=== PATIENT | male | born 1960 | race Caucasian/White ===

== ENCOUNTER 2016-12-02 00:01 | Outpatient (RCR) | payer MEDICARE, MEDICAID, SELFPAY ==
[~2016-12-02 00:01] MED LIST: ADV250 IH; ALBU17AE27 IH; ALBU8HFA IH; AMAN100C12 PO; AMOX250T PO; ARIP5TAB8 PO; ASPI-891 PO; ASPI81TA39 PO; ATOR10TA84 PO; DIPH25 PO; DIPH25CA85 PO; DIVA500T2 PO; DIVA500T35 PO; DIVA500T52 PO; DIVA500T69 PO; DOCU-119 PO; DOCU250C28 PO; DOCU250C91 PO; DSS100 PO; FLUT1DIS3 IH; IBUP-1506 PO; LEVO100 PO; LEVO125T4 PO; LEVO150 PO; LEVO175T4 PO; LEVO25TA4 PO; METO-296 PO; METO25XL PO; MULT-1065 PO; MULT1TAB70 PO; OLAN10TA3 PO; OLAN10TA6 PO; OLAN15TA2 PO; OLAN20TA2 PO; OLAN5TAB40 PO; OMEP20 PO; OMEP40CA PO; PANT40TA25 PO; PRAZ1 PO; PRAZ1CAP5 PO; PRAZ2 PO; PRAZ2CAP2 PO; PROP20 PO; QUET200T PO; QUET400T PO; RISP3 PO; SERT100T12 PO; SERT50TA12 PO; SIMV-260 PO; TAMS0.4C32 PO; TIOT185 IH; TOPROL ER PO; TRIH2TAB3 PO; TRIH5TAB2 PO
== END 2016-12-31 | disposition home or self-care (01) ==
LOC: IOPBV 00:01
PROVIDERS: ATTEND Psychiatry & Neurology Psychiatry
DX: F20.0 Paranoid schizophrenia (principal); H53.40 Unspecified visual field defects; R56.9 Unspecified convulsions; E78.00 Pure hypercholesterolemia, unspecified; I10 Essential (primary) hypertension; I51.89 Other ill-defined heart diseases; J44.9 Chronic obstructive pulmonary disease, unspecified; K21.9 Gastro-esophageal reflux disease without esophagitis; N40.0 Benign prostatic hyperplasia without lower urinary tract symptoms; E11.9 Type 2 diabetes mellitus without complications; E03.9 Hypothyroidism, unspecified; F32.9 Major depressive disorder, single episode, unspecified; F41.9 Anxiety disorder, unspecified; F42.9 Obsessive-compulsive disorder, unspecified; F17.210 Nicotine dependence, cigarettes, uncomplicated; Z90.89 Acquired absence of other organs; Z88.6 Allergy status to analgesic agent; Z91.013 Allergy to seafood
CPT/HCPCS: 90853

== ENCOUNTER → 2017-06-19 | Outpatient (CLI) | payer MEDICARE, OTHER ==
[~2017-06-19] MED LIST changes: -ADV250 IH; -ALBU17AE27 IH; -ALBU8HFA IH; -AMOX250T PO; -ARIP5TAB8 PO; -ASPI-891 PO; -ASPI81TA39 PO; -ATOR10TA84 PO; -DIPH25 PO; -DIPH25CA85 PO; -DIVA500T2 PO; -DIVA500T52 PO; -DIVA500T69 PO; -DOCU-119 PO; -DOCU250C28 PO; -DOCU250C91 PO; -FLUT1DIS3 IH; -IBUP-1506 PO; -LEVO125T4 PO; -LEVO150 PO; -LEVO175T4 PO; -LEVO25TA4 PO; -METO-296 PO; -METO25XL PO; -MULT-1065 PO; -MULT1TAB70 PO; -OLAN10TA6 PO; -OLAN15TA2 PO; -OLAN20TA2 PO; -OLAN5TAB40 PO; -OMEP40CA PO; -PANT40TA25 PO; -PRAZ1 PO; -PRAZ1CAP5 PO; -PRAZ2 PO; -PRAZ2CAP2 PO; -PROP20 PO; +PROP20TA18 PO; -QUET200T PO; -QUET400T PO; -RISP3 PO; -SERT100T12 PO; -SERT50TA12 PO; -TOPROL ER PO; -TRIH2TAB3 PO; -TRIH5TAB2 PO
[2017-06-19 16:18] LABS: HEMOGLOBIN A1C 5.4 % (4.5-6.2)
[2017-06-19 16:25] LABS: CHOL/HDL RATIO 4.6 (4.2-7.3)
== END | disposition home or self-care (01) ==
LOC: LABMN 12:00
PROVIDERS: ATTEND Psychiatry & Neurology Psychiatry
DX: F20.9 Schizophrenia, unspecified (principal); R79.89 Other specified abnormal findings of blood chemistry
CPT/HCPCS: 83036

== ENCOUNTER → 2018-05-28 | Outpatient (CLI) | payer MEDICARE, OTHER ==
[~2018-05-28] MED LIST changes: +DIVA-78 PO; -DIVA500T35 PO
== END | disposition home or self-care (01) ==
LOC: LABMN 13:00
PROVIDERS: ATTEND Psychiatry & Neurology Psychiatry
DX: F20.9 Schizophrenia, unspecified (principal); E11.9 Type 2 diabetes mellitus without complications
CPT/HCPCS: 82947; 83036